=== PATIENT | female | born 2005 | race Caucasian/White ===

== ENCOUNTER 2025-03-02 15:53 | Outpatient (CLI) | payer OTHER, SELFPAY ==
--- OUTSIDE RECORDS SUMMARY | 2025-03-02 15:55 | XMS_ITS | Clinical Summary ---
Author Organization [facility] Address [address] [place] [address] Care Team Providers Care Guyline Operator Name Role Phone Unavailable Primary Care Provider Unavailabl e Allergies No known active allergies Social History Tobacco Use Types Packs/Day Years Used Date Smoking Tobacco: Never Assessed Comments Unknown Sex and Gender Information Value Date Recorded Sex Assigned at Not on file Legal Sex Female 11:42 AM EDT Gender Identity Not on file Sexual Orientation Not on file Plan of Treatment Health Maintenance Due Date Last Done Comments Depression Screen 2015 Varicella vaccine (1 of 2 - 13+ 2-dose series) 10/23/2016 HIV screen 10/23/2018 HPV vaccine (1 - 3-dose series) 10/23/2018 Chlamydia/GC screen 2019 Meningococcal B vaccine (1 o f 2 - Standard) 2019 Hepatitis C screen 10/23/2021 DTaP/Tdap/Td vaccine (1 - Tdap) 10/23/2022 Hepatitis B vaccine (1 of 3 - 19+ 3-dose series) 10/23/2022 COVID-19 Vaccine (1 - 2023-2 5 season) 2024 Pap smear 10/23/2024 Flu vaccine (#1) 03/24/2025 Hepatitis A vaccine Aged Out No longe r eligible based on patient's age to complete this topic Hib vaccine Aged Out No longer eligi ble based on patient's age to complete this topic Meningococcal (ACWY) vaccine Aged Out No longer eligible based on patient's age to complete this topic Pneumococcal 0-49 years Vaccine Aged Out No longer eligible based on patient's age to complete this topic Polio vaccine Aged Out No longer elig ible based on patient's age to complete this topic
--- OUTSIDE RECORDS SUMMARY | 2025-03-02 15:55 | XMS_ITS | Encounter Summary ---
Author Organization [facility] Address [address] [place] [id number] Care Team Providers Care Unmanned Aircraft Systems Roboticist Name Role Phone Pcp, No Primary Care Provider Unavailabl e Reason for Referral * Consultation (Routine) - Authorized Specialty Diagnoses / Procedures Referred By Contac t Referred To Contact Endodontics / Dentistry Diagnoses Exposure of pulp of tooth due to dental trauma Stephy Sampson DMD [address] [place] [address] Phone: tel: fax: [facility] [address] [place] [phone] Phone: tel: fax: Referral ID Status Reason Start Date Expiration Date Visits Requested Visits Authorized [id number] Authorized Specialty Services Required 4 12/21/2025 1 1 Encounter Details Date Type Department Care Team (Late st Contact Info) Description 06/21/2024 Community Orders Community Practice [address] [place] [address] Stephy Sampson DMD [address] [place] [address] Exposure of pulp of tooth due to dental trauma (Primary Dx) Social History Tobacco Use Types Packs/Day Years Used Date Smoking Tobacco: Never Passive Smoke Exposure: Past Smokeless Tobacco: Never Passive Exposure Comments:ch ildhood Alcohol Use Standard Drinks/Week Comments Never 0 (1 standard drink = 0.6 oz pur e alcohol) CAGE ASSESSMENT Answer Date Recorded Cage unable to access Not on file 05/30/2024 Cage max number of drinks Not on file 2023 Cage Beverages a week Not on file 05/30/2024 Have you ever felt you should CUT down on your d rinking? 0 05/30/2024 Have you been ANNOYED by people criticizing your drinking? 0 05/30/2024 Have you felt GUILTY about your drinking? 0 05/30/2024 Have you had a drink first t bhavya in the morning (E[employer] MANAGER) to steady your nerves or to get rid of a hangover? 0 05/30/2024 CAGE Questionnaire Score 0 024 Comments No Sex and Gender Information Value Date Recorded Sex Assigned at Female 02/29/2024 11:55 AM EDT Legal Sex Female 11:24 AM EDT Gender Identity Female 02/29/2024 11:55 AM EDT Sexual Orientation Straight 02/29/2024 11 :55 AM EDT documented as of this encounter Plan of Treatment Scheduled Referrals Name Type Priority Associated Diagnoses Order Schedule Ambulatory referral to Endodontics Outpatient Referral Routine Exposure of pulp of tooth due to dental trauma Ordered: 06/21/2024 documented as of this encounter Goals Goal Patient Goal Type Associated Problems Recent Progress Patient-Stated? Author Delayed Delivery Care Plan CPM S22 PP LABOR (OBSTETRICS) No Open Scheduling, Background documented as of this encounter Visit Diagnoses Diagnosis Exposure of pulp of tooth due to dental trauma- Primary documented in this encounter Additional Health Concerns Active Problems Noted Date Diagnosed Date CPM S22 PP LABOR (OBSTETRICS) 05/02/2024 Assessment Noted Time A Body Mass Index follow-up plan has been documented for the patient 06/01/2024 9:17 AM EDT documented as of this encounter Care Teams Unmanned Aircraft Systems Roboticist Relationship Specialty Start Date End Date Pcp, No [address] [place] [address] PCP - General Family Medicine 03/28/24 documented as of this encounter
--- OUTSIDE RECORDS SUMMARY | 2025-03-02 15:55 | XMS_ITS | Clinical Summary ---
Author Organization [facility] Address [address] [place] [id number] Care Team Providers Care Cherry Sorter Name Role Phone Pcp, No Primary Care Provider Unavailabl e Allergies No known active allergies Medications Vit-Fe Fumarate-FA ( Vitamin) 27-0.8 MG tablet Take 1 tablet by mouth 1 (one) time each day. Active Vit-Fe Fumarate-FA ( Vitamins) 28-0.8 MG tabletIndications: Encounter for supervision of normal , antepartum, unspecified Take 1 tablet by mouth 1 (one) time each day. 90 tablet 3 03/28/20 24 025 Active famotidine (Pepcid) 20 MG tabletIndications: Heartburn during in second trimester Take 1 tablet (20 mg) by mouth 2 (two) times a day. 90 tablet 3 05/02/20 24 Active acetaminophen (Tylenol) 325 MG tablet Take 2 tablets (650 mg) by mouth every 6 (six) hours. Under [place] law, monthly prescriptions (30 days) can be refilled at 25 days and three-month prescriptions (90 days) at 80 days. Please contact the insurance company with questions if refills are denied. 100 tablet 1 06/01/20 24 Active docusate sodium 100 MG capsule Take 200 mg by mouth 2 (two) times a day. 30 capsule 06/01/20 24 Active ibuprofen 600 MG tabletIndications: Mild to Moderate Pain Take 1 tablet (600 mg) by mouth every 6 (six) hours. 100 tablet 1 06/01/20 24 Active ondansetron ODT (Zofran-ODT) 4 MG disintegrating tablet Take 1 tablet (4 mg) by mouth every 8 (eight) hours if needed for nausea or vomiting (). 5 tablet 06/01/20 Active Active Problems Problem Noted Date Diagnosed Date Second trimester 05/30/2024 Heartburn during in second trimester 0 05/02/2024 Family history of factor V Leiden mutation 05/02 Assessment & Plan (05/30/2024 11:21 AM EDT): MGM with Factor V Leiden. Mother has been tested and was negative. PTSD (post-traumatic stress disorder) 03/28/2024 Anxiety 03/28/2024 Assessment & Plan (05/30/2024 10:03 AM EDT): Not currently taking medication, moods are stable Assessment & Plan (03/28/2024 10:05 AM EDT): Symptomatic today but declines referral for therapy or medication. Denies SI or thoughts of self harm. Depression 03/28/2024 Seasonal allergies 03/28/2024 Encounter for supervision of normal , a ntepartum 03/28/2024 Assessment & Plan (05/30/2024 10:26 AM EDT): RTC in 4 weeks Discussed location of OB triage and precautions Initial folder given OB labs: O+/RI/HBV neg/HCV neg/HIV neg/Syphilis NR G/C/T neg Pap smear not collected due to age CF: neg NIPT: neg, female Immunizations: Flu: Declined today 05/02/24 Tdap: Discuss at 27-28 weeks OB ultrasounds: 05/02/24 at 13 6/7: fundal placenta, 3 VC, AF WNL, NT 1.5 mm, normal uterine artery dopplers Delivery planning: MARCO ANTONIO, breast, unsure of PP contraception (Depo or POPs) Assessment & Plan (05/02/2024 10:11 AM EDT): RTC in 4 weeks Discussed location of OB triage and precautions Initial folder given OB labs: O+/RI/HBV neg/HCV neg/HIV neg/Syphilis NR G/C/T neg Pap smear not collected due to age CF: neg Immunizations: Flu: Declined today 05/02/24 Tdap: Discuss at 27-28 weeks OB ultrasounds: BSUS consistent with LMP at initial Formal ultrasound today after visit Assessment & Plan (03/28/2024 10:04 AM EDT): RTC in 4 weeks Discussed location of OB triage and precautions Initial folder given OB labs: Collected today Immunizations: Flu: Tdap: Discuss at 27-28 weeks OB ultrasounds: BSUS consistent with LMP today Family History Medical History Relation Name Comments Breast cancer Maternal Grandmother Factor V Leiden deficiency Maternal Grandmother Heart Problem Maternal Grandmother Anemia Mother Anxiety disorder Mother Clotting disorder Mother Depression Mother TERESITA disease Mother Hypertension Mother Relation Name Status Comments Maternal Grandmother Mother Social History Tobacco Use Types Packs/Day Years [...] drink first t bhavya in the morning ([employer]) to steady your nerves or to get rid of a hangover? 0 05/30/2024 CAGE Questionnaire Score 0 024 Comments No Sex and Gender Information Value Date Recorded Sex Assigned at Female 02/29/2024 11:55 AM EDT Legal Sex Female 11:24 AM EDT Gender Identity Female 02/29/2024 11:55 AM EDT Sexual Orientation Straight 02/29/2024 11 :55 AM EDT Last Filed Vital Signs Vital Sign Reading Time Taken Comments Blood Pressure 142/78 06/19/2024 5:17 AM EDT Pulse 89 06/19/2024 5:17 AM EDT Temperature 36.8 C (98.3 F) 06/19/2024 5:17 AM EDT Respiratory Rate 18 06/19/2024 5:17 AM EDT Oxygen Saturation 99% 06/19/2024 5:17 AM EDT Inhaled Oxygen Concentration - - Weight 74.4 kg (164 lb) 06/19/2024 2:41 AM EDT Height 167.6 cm (5' 6 ) 06/19/2024 2:41 AM EDT Body Mass Index 26.47 06/19/2024 2:41 AM EDT Plan of Treatment Health Maintenance Due Date Last Done Comments [facility]-Depression Screening 2003 [facility]-Infant/Child/Adol SDOH Screenings 2003 [facility]-Varicella Vaccines (1 of 2 - 13+ 2-dose series) 10/23/2016 HPV Vaccines (1 - 3-dose series) 10/23/2018 [facility]- SDOH Screenings 10/23/2021 [facility]-Adult SDOH Screenings 10/23/2021 [facility]-DTaP,Tdap,and Td Vaccines (1 - Tdap) 10/23/2022 [facility]-Hepatitis B Vaccines (1 of 3 - 19+ 3-dose series) 10/23/2022 [id number]-52 Vaccine (1 - 2023- season) 2024 [facility]-Pap Smear 10/23/2024 [facility]-Chlamydia and Gonorrhea Screening 03/28/2025 03/28/2024, 03/28/2024 [facility]-Influenza Vaccine (#1) 2025 [facility]-Zoster Vaccines (1 of 2) 10/23/2053 [facility]-HIV Screening Completed 03/28/2024 [facility]-Hepatitis C Screening Completed 03/28/2024 [facility]-Obesity Intervention Completed 024, 05/30/2024, 05/02/2024, Additional history exists [facility]-HIB Vaccines Aged Out No longer e ligible based on patient's age to complete this topic [facility]-Hepatitis A Vaccines Aged Out No longer eligible based on patient's age to complete this topic [facility]-IPV Vaccines Aged Out No longer e ligible based on patient's age to complete this topic [facility]-Pneumococcal Vaccine: Pediatrics (0 to 5 Years) and At-Risk Patients (6 to 49 Years) Aged Out No longer eligible based on patient's age to complete this topic [facility]-Rotavirus Vaccines Aged Out No lo nger eligible based on patient's age to complete this topic Goals Goal Patient Goal Type Associated Problems Recent Progress Patient-Stated? Author Delayed Delivery Care Plan CPM S22 PP LABOR (OBSTETRICS) No Open Scheduling, Background Procedures Procedure Name Priority Date/Time Associated Diagnosis Comments HEPATITIS C ANTIBODY W/REFLEX TO HCV QUANT PCR Routine 03/28/2024 10:24 AM EDT Encounter for supervision of normal , antepartum, unspecified HIV 1/2 ANTIBODY/ANTIGEN SCREEN WITH REFLEX TO HIV I/II DIFFERENTIATION Routine 03/28/2024 10:24 AM EDT Encounter for supervision of normal , antepartum, unspecified CHLAMYDIA TRACHOMATIS DNA BY PCR Routine 03/28/2024 9:53 AM EDT Encounter for supervision of normal , antepartum, unspecified from Last 3 Months or Most Recently Relevant to Health Maintenance Results * HIV 1 & 2 Antibody/Antigen Screen (03/28/2024 10:24 AM EDT) HIV 1 & 2 Antibody/Antigen Screen Non Reactive Non Reactive 03/28/2024 12:05 PM EDT [facility] Comment:Screening for HIV 1 & 2 antibodies, and P24 antigen is NONREACTIVE. No confirmatory testing is required. Blood Venous blood specimen / Unknown Venipuncture / Unknown 03/28/2024 10:24 AM EDT 03/28/2024 10:25 AM EDT us Sarah Brown FLOOR TRADER, DNP LAB BLOOD ORDERABLES Final Result [facility] [address] [place] [id number] * Hepatitis C Antibody (03/28/2024 10:24 AM EDT) Hepatitis C Antibody Negative Negative 03/28/2024 12:02 PM EDT [facility] Blood Venous blood specimen / Unknown Venipuncture / Unknown 03/28/2024 10:24 AM EDT 03/28/2024 10:25 AM EDT Sarah Brown APRN, DNP LAB BLOOD ORDERABLES Final Result [facility] [address] [place] [address] * Chlamydia trachomatis DNA by PCR (03/28/2024 9:53 AM EDT) Chlamydia trachomatis DNA PCR Result Not Detected Not Detected 03/29/2024 10:03 AM EDT [facility] Swab Endocervical structure / Unknown Non-blood Collection / Unknown 03/28/2024 9:53 AM EDT 03/28/2024 9:54 AM EDT Narrative [facility] - 03/29/2024 10:03 AM EDT This test is performed by the [employer] instrument for Real Time PCR C. trachomatis and N. gonorrhea. This test is FDA approved for use with endocervical, vaginal, and urine specimens. This test is used for clinical purposes. It should not be regarded as invesigational or for research. The [facility] Clinical Microbiology Laboratory is certified under the Clinical Laboratory Improvement Amendments of 1988 (CLIA-88) as qualified to perform high complexity clinical laboratory testing. Sarah Brown APRN, DNP LAB MICROBIOLOGY - GE NERAL ORDERABLES Final Result Performing Organization Address [facility] Co de Phone Number [facility] [address] [place] [address] from Last 3 Months or Most Recently Relevant to Health Maintenance Additional Health Concerns Active Problems Noted Date Diagnosed Date CPM S22 PP LABOR (OBSTETRICS) 05/02/2024 Insurance [employer] [facility] MEDICAID Advance Directives * Full Code (Latest Code Status on File) Date Activated Date Inactivated Comments 05/30/2024 5:14 PM 06/01/2024 1:24 PM Question Answer Comments Patient has decision-making capacity? Yes Care Teams Cherry Sorter Relationship Specialty Start Date End Date Pcp, No [address] [place] [address] PCP - General Family Medicine 03/28/24
--- NOTE | 2025-03-02 16:00 | US_ITS ---
PROCEDURE: US TRANSVAGINAL CLINICAL INDICATION: Pelvic pain and Hx of ovarian cysts COMPARISON: No exams were available for comparison FINDINGS: Transvaginal sonographic images of the pelvis were obtained. UTERUS: 7.3cm x 6.1cmx 3.9 cm anteverted with a combined endometrial thickness of 9.4mm. LEFT OVARY: 3.4cmx2.3cmx3.2cm with a volume of 12.7ml. There are multiple small peripheral follicles. RIGHT OVARY: 2.4cmx 2.1cmx1.5 cm with a volume of 4ml. There are multiple small peripheral follicles. Both ovaries are seen and appear polycystic. Doppler flow to both ovaries are seen. There is moderate fluid in the cul-de-sac. IMPRESSION: 1. Anteverted uterus normal in shape and size. The endometrium is normal in appearance. 2. Both ovaries are seen and appear polycystic. The left ovary more so than the right ovary. 3. There is moderate fluid in the cul-de-sac which could be physiologic or inflammatory. Dictated by: Nakul Aguilar MD 03/02/2025 21:28 Nakul Aguilar MD in OV 03/02/2025 21:28
[2025-03-02 16:43] LABS: Hematocrit 42.1 % (37.0-47.0); Hemoglobin 13.9 g/dL (12.2-16.2); Immature Granulocytes % 0.3 %; Mean Corpuscular HGB Conc 33.0 g/dL (31.8-35.4); Mean Corpuscular Hemoglobin 28.2 pg (27.0-31.2); Mean Corpuscular Volume 85.4 fl (81-99); Nucleated Red Blood Cells % 0 %; Platelet Count 271 K/mm3 (142-424); Red Blood Count 4.93 M/mm3 (4.20-5.40); Red Cell Distribution Width-SD 42.3 fL; White Blood Count 7.0 K/mm3 (4.8-10.8)
[2025-03-02 17:00] LABS: Albumin Level 5.3 g/dl (3.5-5.0); Chloride 103 mmol/L (98-107); Potassium 3.5 mmoL/L (3.5-5.1); Sodium 138 mmol/L (136-145)
[2025-03-02 17:03] LABS: Alanine Aminotransferase 13 U/L (12-78); Albumin/Globulin Ratio 1.7 (1.1-1.8); Alkaline Phosphatase 49 U/L (38-126); Anion Gap 16.5 mEq/L (5-15); Aspartate Amino Transferase 27 U/L (14-36); Bilirubin,Total 0.7 mg/dl (0.2-1.3); Blood Urea Nitrogen 9 mg/dl (7-17); Carbon Dioxide 22 mmol/L (22.0-30.0); Creatinine,Serum 0.70 mg/dl (0.52-1.04); Estimated Glomerular Filt Rate 106 ml/min (>60); GFR (African American) 128 ML/MIN (>60); Globulin 3.2 g/dL (1.3-3.2); Total Protein,Serum 8.5 g/dl (6.3-8.2)
[2025-03-02 17:04] LABS: Calcium 9.7 mg/dl (8.4-10.2); Glucose 108 mg/dl (74-100)
[2025-03-02 17:23] LABS: 25-OH Vitamin D, Total 45.7 ng/mL (30-100)
[2025-03-02 17:35] LABS: Thyroid Stimulating Hormone 1.02 uIU/mL (0.465-4.68)
[2025-03-02 18:33] LABS: Hemoglobin A1C 6.1 % (4.0-6.0)
[2025-03-03 11:22] LABS: FSH 3.7 mIU/mL (.); LH 4.3 mIU/mL (.); Testosterone,Total 25 ng/dL (13-71)
[2025-03-03 15:19] LABS: Beta-2 Glycoprotein I Ab, IgG <9 (0-20); Beta-2 Glycoprotein I Ab, IgM <9 (0-32)
[2025-03-03 16:12] LABS: Anti-Cardio Antibody IgM 11 MPL U/mL (0-12); Anti-Cardiolipin Antibody IgG <9 GPL U/mL (0-14); Anticardiolipin Ab,IgA,Qn <9 APL U/mL (0-11)
[2025-03-15 14:12] LABS: APTT 30.7 sec (.); Anti-Cardiolipin Antibody IgG <10 GPL (.); Anti-Cardiolipin Antibody IgM <10 MPL (.); Beta-2 Glycoprotein I Ab, IgA <10 SAU (.); Beta-2 Glycoprotein I Ab, IgG <10 SGU (.); Beta-2 Glycoprotein I Ab, IgM <10 SMU (.); INR 1.1 ratio (.); Prothrombin Time 11.9 sec (.)
== END 2025-03-02 23:59 | disposition home or self-care (01) ==
PROVIDERS: PCP Obstetrics & Gynecology; Visit Provider Obstetrics & Gynecology
DX: E28.2 Polycystic ovarian syndrome (principal); R93.89 Abnormal findings on diagnostic imaging of other specified body structures; Z87.42 Personal history of other diseases of the female genital tract; Z87.59 Personal history of other complications of pregnancy, childbirth and the puerperium; Z31.9 Encounter for procreative management, unspecified
CPT/HCPCS: 36415; 76830; 80053; 82306; 83001; 83002; 83036; 84144; 84403; 84443; 85025; 85597; 85598; 85610; 85613; 85670; 85730; 86146; 86147